=== PATIENT | female | born 1955 | race Caucasian/White ===

== ENCOUNTER 2018-01-21 22:35 | Emergency (ER) | payer MEDICARE ==
[2018-01-21] MEDS ORDERED: [UNRECOGNIZED DRUG - OTHER] (22:52)
[2018-01-21] MEDS ORDERED: RISP0.5T82 PO (22:52)
[2018-01-21] MEDS ORDERED: GABA-549 PO (22:52)
[2018-01-21] MEDS ORDERED: OMEP-125 PO (22:52)
[2018-01-21] MEDS ORDERED: TRAZ50TA34 PO (22:52)
[2018-01-21] MEDS ORDERED: PARO7.5C2 (22:52)
[2018-01-21] MEDS ORDERED: KETOROLAC 30 MG/ML VIAL IVP ONE (22:55)
[2018-01-21 23:03] LABS: PLATELET COUNT, AUTOMATED 318 K/uL (150-450)
[2018-01-21] MEDS ORDERED: KETOROLAC 30 MG/ML VIAL ONE (23:09)
--- NOTE | 2018-01-21 23:11 | EKG ---
FACILITY: [facility] PATIENT NAME: ERMELINDA PETTIT : [id number] MR: [id number] V: [id number] EXAM DATE: ORDERING PHYSICIAN: IRENE CORREA TECHNOLOGIST: THU Test Reason : CHEST PAIN Blood Pressure : / mmHG Vent. Rate : 082 BPM Atrial Rate : 082 BPM P-R Int : 154 ms QRS Dur : 072 ms QT Int : 388 ms P-R-T Axes : 016 -11 027 degrees QTc Int : 453 ms Normal sinus rhythm Nonspecific T wave abnormality Abnormal ECG No previous ECGs available Confirmed by MIRACLE HAWTHORNE ([id number]) on 01/22/2018 2:52:48 PM Referred By: MADELINE Confirmed By:MIRACLE HAWTHORNE
--- NOTE | 2018-01-21 23:28 | ER Report ---
History and Physical Time Seen By MD: 22:40 Hx. of Stated Complaint: PATIENT WAS [place] WHEN SHE FELL AND HIT HER RIBS ON THE CORNER OF A NIGHT STAND; PATIENT HAS BEEN DRINKING TONIGHT WELL HPI/ROS CHIEF COMPLAINT: Fall, left rib pain HISTORY OF PRESENT ILLNESS: 62-year-old female traveling with her around [place] & [place] from [place]. Tonight she was intoxicated and fell on the bedside stand. She is complaining of severe left rib pain. She denies head impact, neck pain, or shortness of breath. She notes sharp 8/10 pain on the right side. She could feel crunching of the ribs with breathing. REVIEW OF SYSTEMS: Respiratory: No cough, no dyspnea. Cardiovascular: As above Gastrointestinal: No vomiting, no abdominal pain. Musculoskeletal: No back pain. Allergies: Coded Allergies: No Known Drug Allergies (Unverified , 01/21/18) Home Meds Active Scripts Hydrocodone Bit/Acetaminophen (NORCO 5-325 TABLET) 1 Each Tablet, 1 EACH PO Q4H PRN for PAIN, #15 TAB Prov:IRENE CORREA DO 01/22/18 Reported Medications Paroxetine Mesylate (Paroxetine) 7.5 Mg Capsule 01/21/18 Risperidone (RISPERDAL) 0.5 Mg Tablet, 0.5 MG PO 01/21/18 [Paxitine] No Conflict Check 01/21/18 Gabapentin (GABAPENTIN) 300 Mg Capsule, 300 MG PO TID, CAPSULE 01/21/18 Trazodone Hcl (TRAZODONE HCL) 50 Mg Tablet, 50 MG PO QHS 01/21/18 Omeprazole (OMEPRAZOLE) 20 Mg Capsule.dr, 1 CAP PO BID, CAP 01/21/18 Past Medical/Surgical History Anxiety, depression, GERD Hx Substance Use Disorder: No Hx Alcohol Use: Yes (OCC. AND CURRENTLY) Constitutional Vital Sign - Last 24 Hours 01/21/18 01/21/18 01/21/18 01/21/18 22:39 22:40 23:00 23:05 Temp 98.7 Pulse 79 80 Resp 18 B/P (MAP) 139/92 (108) 139/92 116/84 (95) Pulse Ox 87 93 O2 Delivery Room Air 01/22/18 01/22/18 01/22/18 01/22/18 00:00 00:05 00:10 00:32 Pulse 90 91 84 Resp 14 B/P (MAP) 126/79 (95) Pulse Ox 92 93 01/22/18 01/22/18 00:32 01:50 Temp 98.6 Pulse 79 Resp 16 B/P (MAP) 138/78 (98) Pulse Ox 91 90 O2 Delivery Nasal Cannula Room Air O2 Flow Rate 2.5 Physical Exam Vital signs stable, afebrile, pulse ox 88% on room air. No shallow intermittent splinting respirations General Appearance: The patient is alert, has no immediate need for airway protection and no current signs of toxicity. Mild distress him a palpation of the head and neck reveal no tenderness or trauma HEENT: Pupils equal and round no injection. Oropharynx without redness, mix members are moist Respiratory: Chest is non tender, lungs are clear to auscultation. There is moderate tenderness on the left ribs Cardiac: regular rate and rhythm Gastrointestinal: Abdomen is soft and non tender, no masses, bowel sounds normal. Musculoskeletal: Neck: Neck is supple and non tender. Extremities have full range of motion and are non tender. Skin: No rashes or lesions. DIFFERENTIAL DIAGNOSIS: After history and physical exam differential diagnosis was considered for chest wall contusion, fractured ribs, Medical Decision Making Data Points Result Diagram: 01/21/18219901/21/182199 Laboratory Hematology Test 01/21/18 22:00 Red Blood Count 4.32 M/uL (4.17-5.56) Mean Corpuscular Volume 92.9 fL (80.0-96.0) Mean Corpuscular Hemoglobin 32.9 pg (26.0-33.0) Mean Corpuscular Hemoglobin Concent 35.4 g/dL (32.0-36.0) Red Cell Distribution Width 13.1 % (11.5-14.5) Mean Platelet Volume 7.1 fL (7.2-11.1) Neutrophils (%) (Auto) 68.8 % (39.4-72.5) Lymphocytes (%) (Auto) 24.8 % (17.6-49.6) Monocytes (%) (Auto) 4.4 % (4.1-12.4) Eosinophils (%) (Auto) 1.1 % (0.4-6.7) Basophils (%) (Auto) 0.9 % (0.3-1.4) Nucleated RBC Relative Count (auto) 0.1 /100WBC Neutrophils # (Auto) 5.0 K/uL (2.0-7.4) Lymphocytes # (Auto) 1.8 K/uL (1.3-3.6) Monocytes # (Auto) 0.3 K/uL (0.3-1.0) Eosinophils # (Auto) 0.1 K/uL (0.0-0.5) Basophils # (Auto) 0.1 K/uL (0.0-0.1) Nucleated RBC Absolute Count (auto) 0.01 K/uL Sodium Level 142 mmol/L (137-145) Potassium Level 3.7 mmol/L (3.5-5.0) Chloride Level 103 mmol/L (98-107) Carbon Dioxide Level 26 mmol/L (22-31) Blood Urea Nitrogen 15 mg/dl (7-18) Creatinine 1.00 mg/dl (0.52-1.04) Glomerular Filtration Rate Calc 56.0 Random Glucose 121 mg/dl (75-110) Calcium Level 9.0 mg/dl (8.4-10.2) Total Bilirubin 0.3 mg/dl (0.2-1.3) Aspartate Amino Transf (AST/SGOT) 24 U/L (0-35) Alanine Aminotransferase (ALT/SGPT) 28 U/L (0-56) Alkaline Phosphatase 75 U/L (0-126) Total Protein 8.0 g/dl (6.3-8.2) Albumin 4.4 g/dl (3.5-5.0) Serum Alcohol 167 mg/dl Chemistry Test 01/21/18 22:00 White Blood Count 7.2 k/uL (4.5-11.0) Red Blood Count 4.32 M/uL (4.17-5.56) Hemoglobin 14.2 g/dL (12.0-16.0) Hematocrit 40.1 % (34.0-47.0) Mean Corpuscular Volume 92.9 fL (80.0-96.0) Mean Corpuscular Hemoglobin 32.9 pg (26.0-33.0) Mean Corpuscular Hemoglobin Concent 35.4 g/dL (32.0-36.0) Red Cell Distribution Width 13.1 % (11.5-14.5) Platelet Count 318 K/uL (150-450) Mean Platelet Volume 7.1 fL (7.2-11.1) Neutrophils (%) (Auto) 68.8 % (39.4-72.5) Lymphocytes (%) (Auto) 24.8 % (17.6-49.6) Monocytes (%) (Auto) 4.4 % (4.1-12.4) Eosinophils (%) (Auto) 1.1 % (0.4-6.7) Basophils (%) (Auto) 0.9 % (0.3-1.4) Nucleated RBC Relative Count (auto) 0.1 /100WBC Neutrophils # (Auto) 5.0 K/uL (2.0-7.4) Lymphocytes # (Auto) 1.8 K/uL (1.3-3.6) Monocytes # (Auto) 0.3 K/uL (0.3-1.0) Eosinophils # (Auto) 0.1 K/uL (0.0-0.5) Basophils # (Auto) 0.1 K/uL (0.0-0.1) Nucleated RBC Absolute Count (auto) 0.01 K/uL Glomerular Filtration Rate Calc 56.0 Calcium Level 9.0 mg/dl (8.4-10.2) Total Bilirubin 0.3 mg/dl (0.2-1.3) Aspartate Amino Transf (AST/SGOT) 24 U/L (0-35) Alanine Aminotransferase (ALT/SGPT) 28 U/L (0-56) Alkaline Phosphatase 75 U/L (0-126) Total Protein 8.0 g/dl (6.3-8.2) Albumin 4.4 g/dl (3.5-5.0) Serum Alcohol 167 mg/dl Toxicology Test 01/21/18 22:00 Serum Alcohol 167 mg/dl EKG/Imaging EKG Interpretation 12 lead EK Rhythm: normal sinus rhythm Celina: normal QRS: normal ST segments: Nonspecific T wave abnormality, diffuse T-wave flattening, no old EKGs for comparison Imaging X-ray: Two-view chest x-ray, 2 views, left ribs was obtained. I viewed the images myself on the PACS system. My interpretation of the images is: No fracture no dislocation or malalignment. The radiologist interpretation had no clinically significant variation from this interpretation. ED Course/Re-evaluation Clinical Indication for ER IV: IV Access ED Course Patient was admitted to an examination room. H&P was done. The differential diagnosis was considered. On clinical examination. Patient has moderate tenderness over the left lateral ribs. Diagnostic x-rays are performed confirming 3 fractured ribs minimally displaced no pneumothorax. His atelectasis secondary to splinting. Shallow respirations. Patient's treated with a DuoNeb. She set up with incentive spirometry, prescription for Celeste will be provided for temporary relief. Patient's discharged home. She is advised a low threshold return to the ER for any worsening. Decision to Disposition Date: Jan 21, 2018 Decision to Disposition Time: 23:27 Depart Departure Latest Vital Signs Vital Signs Date Time Temp Pulse Resp B/P (MAP) Pulse Ox O2 Delivery O2 Flow Rate FiO2 01/22/18 01:50 98.6 79 16 138/78 (98) 90 Room Air 01/22/18 00:32 2.5 Impression: Primary Impression: Multiple fractures of ribs, left side, initial encounter for closed fracture Additional Impressions: Depression GERD (gastroesophageal reflux disease) Condition: Improved Disposition: HOME OR SELF-CARE New Scripts Hydrocodone Bit/Acetaminophen (NORCO 5-325 TABLET) 1 Each Tablet 1 EACH PO Q4H PRN for PAIN, #15 TAB Prov: IRENE CORREA DO 01/22/18 Patient Instructions: Rib Fracture (ED) Additional Instructions: Perform incentive spirometry every 1-2 hours while awake Follow-up with your doctor when you return home Go to the nearest ER for any worsening Problem Qualifiers Additional Impressions: Depression Depression Type: unspecified Qualified Codes: F32.9 - Major depressive disorder, single episode, unspecified GERD (gastroesophageal reflux disease) Esophagitis presence: esophagitis presence not specified Qualified Codes: K21.9 - Gastro-esophageal reflux disease without esophagitis IRENE CORREA DO Jan 21, 2018 23:28
--- NOTE | 2018-01-22 00:02 | RADIOLOGY IMAGING REPORT ---
FACILITY: [facility] PATIENT NAME: Neelima Corbett : 1955 MR: [id number] V: [id number] EXAM DATE: ORDERING PHYSICIAN: IRENE CORREA TECHNOLOGIST: Location: [facility] Patient: Neelima Corbett : 1955 Visit/Account:[id number] Date of Sevice: 01/21/2018 2 VIEWS CHEST INDICATION: Fall. Rib pain. COMPARISON: None available FINDINGS: Atelectasis is seen within the left lung base with a suspected small effusion versus a small hemothor ax. No pneumothorax is identified. There are several minimally displaced left-sided rib fractures. Se e today's left rib exam report for further detail. No consolidation or air bronchograms. Right lung i s clear. Heart size and mediastinal contours are within normal limits. Mild degenerative disc disease involves the thoracic spine. IMPRESSION: 1. Multiple minimally displaced left-sided rib fractures. See today's left rib examination report for further detail. 2. Atelectasis within the left lung base with a suspected trace effusion and/or hemothorax. 3. No evidence of pneumothorax. Report Dictated By: Sudhir Acuna at 01/21/2018 11:55 PM Report E-Signed By: Sudhir Acuna at 01/21/2018 11:58 PM WSN:[id number]
--- NOTE | 2018-01-22 00:06 | RADIOLOGY IMAGING REPORT ---
FACILITY: [facility] PATIENT NAME: Neelima Corbett : 1955 MR: [id number] V: [id number] EXAM DATE: ORDERING PHYSICIAN: IRENE CORREA TECHNOLOGIST: Location: [facility] Patient: Neelima Corbett : 1955 Visit/Account:[id number] Date of Sevice: 01/21/2018 RIBS LEFT INDICATION: Fall. Rib pain. COMPARISON: None Available. FINDINGS: 2 views of the left ribs are obtained. These are reviewed in conjunction with today's chest x-ray. There are acute fractures involving the left sixth, seventh and eighth ribs. Fractures appear minimal ly displaced. Atelectasis involves the left lung base and there may be a trace effusion versus a trac e hemothorax. No pneumothorax was seen on today's chest x-ray. Mild degenerative disc disease involve s the thoracic spine. IMPRESSION: 1. Acute fractures of the left sixth, seventh and eighth ribs. No evidence of pneumothorax. Report Dictated By: Sudhir Acuna at 01/21/2018 11:59 PM Report E-Signed By: Sudhir Acuna at 01/22/2018 12:02 AM WSN:[id number]
[2018-01-22] MEDS ORDERED: ALBUTEROL/IPRATROPIUM 3 ML NEB NEB ONE (00:15)
[2018-01-22] MEDS ORDERED: ACET/HYDROC 5/325MG TH ER ONLY 2 TAB/BOTTLE PO ONE (00:15)
[2018-01-22] MEDS ORDERED: HYDR-4309 PO (00:21)
[2018-01-22 01:50] VITALS: BP 138/78
== END 2018-01-22 01:54 | disposition home or self-care (01) ==
LOC: ER 22:56
DX: S22.42XA Multiple fractures of ribs, left side, initial encounter for closed fracture (principal); F32.9 Major depressive disorder, single episode, unspecified; K21.9 Gastro-esophageal reflux disease without esophagitis; R94.31 Abnormal electrocardiogram [ECG] [EKG]
CPT/HCPCS: 71046; 71100; 85025; 93005; 94640; 96374; 99284; G0480; J1885; J7620; 80320; 82040; 82247; 82310; 82374; 82435; 82565; 82947; 84075; 84132; 84155; 84295; 84450; 84460; 84520

== ENCOUNTER → 2018-01-21 | Outpatient (CLI) | payer MEDICARE ==
[~2018-01-21] MED LIST: GABA-549 PO; HYDR-4309 PO; OMEP-125 PO; PARO7.5C2; RISP0.5T82 PO; TRAZ50TA34 PO; [UNRECOGNIZED DRUG - OTHER]
== END ==
LOC: AMB 21:36
PROVIDERS: ATTEND Nurse Practitioner
DX: R07.89 Other chest pain (principal); R07.1 Chest pain on breathing; W01.190A Fall on same level from slipping, tripping and stumbling with subsequent striking against furniture, initial encounter
CPT/HCPCS: A0425; A0427